=== PATIENT | female | born 1990 | race Caucasian/White ===

== ENCOUNTER → 2018-01-05 | Outpatient (CLI) | payer BC ==
[~2018-01-05] MED LIST: CIPRO250 MG PO; CLARITIN10 MG PO; ZITHROMAX Z PA250 MG PO; ZOFRAN ODT4 MG SL
== END | disposition home or self-care (01) ==
LOC: US 10:26
DX: N60.01 Solitary cyst of right breast (principal)

== ENCOUNTER → 2020-05-24 | Outpatient (CLI) | payer BC | END | disposition home or self-care (01) | LOC: LAB 01:03 → COVID19 01:03 | DX: R06.02 Shortness of breath (principal); R07.81 Pleurodynia; R09.1 Pleurisy; R11.0 Nausea; Z20.828 Contact with and (suspected) exposure to other viral communicable diseases ==

== ENCOUNTER → 2020-05-28 | Outpatient (CLI) | payer BC | END | disposition home or self-care (01) | LOC: RAD 11:55 | DX: M48.061 Spinal stenosis, lumbar region without neurogenic claudication (principal); M96.0 Pseudarthrosis after fusion or arthrodesis ==

== ENCOUNTER → 2021-09-20 | Outpatient (CLI) | payer BC | END | disposition home or self-care (01) | LOC: COVID19 17:29 | PROVIDERS: ATTEND Family Medicine | DX: Z20.822 Contact with and (suspected) exposure to COVID-19 (principal) ==